=== PATIENT | male | born 1995 | race Caucasian/White ===

== ENCOUNTER 2020-03-24 17:38 | Emergency (ER) | payer BC ==
--- NOTE | 2020-03-24 17:46 | EDM.PDOC ---
ED HPI GENERAL MEDICAL PROBLEM - General Chief Complaint: General Stated Complaint: TOOTH ACHE Time Seen by Provider: 03/24/20 17:43 Source of Information: Reports: Patient History Limitations: Reports: No Limitations - History of Present Illness INITIAL COMMENTS - FREE TEXT/NARRATIVE: HISTORY AND PHYSICAL: History of present illness: Patient is a 25-year-old male who presents to the emergency room with complaints of left lower dental pain. He was seen 3 days ago at the dentist for a dental abscess and states he could only get in for a brief appointment. At that time he was placed on penicillin and a follow-up appointment was made for him for 04/03/2020. He is concerned that the penicillin is not working as he has increased pain and soft tissue swelling, positive history for MRSA. He has been using Tylenol and Advil without much relief of his discomfort. Patient denies any fever, chills, headache, change in vision, syncope or near syncope. Denies any chest pain, back pain, shortness of breath or cough. Denies any GI or symptoms. Patient has been eating and drinking appropriately. Review of systems: As per history of present illness and below otherwise all systems reviewed and negative. Past medical history: As per history of present illness and as reviewed below otherwise noncontributory. Surgical history: As per history of present illness and as reviewed below otherwise noncontributory. Social history: See social history for further information Family history: As per history of present illness and as reviewed below otherwise noncontributory. Physical exam: General: Well-developed and well-nourished 25-year-old male. Alert and oriented. Nontoxic-appearing and in no acute distress. HEENT: Atraumatic, normocephalic, pupils equal and reactive bilaterally, negative for conjunctival pallor or scleral icterus, mucous membranes moist, redness and mild gumline swelling along the tooth #22. TMs normal bilaterally, throat clear, neck supple, nontender, trachea midline. No drooling or trismus noted. No meningeal signs. No hot potato voice noted. Lungs: Clear to auscultation, breath sounds equal bilaterally. Heart: S1S2, regular rate and rhythm without overt murmur Abdomen: Soft, nondistended, nontender. Skin: Intact, warm, dry. No lesions or rashes noted. Extremities: Atraumatic, moves all extremities per self without difficulty or deficits, negative for cords or calf pain. Neurovascular unremarkable. Neuro: Awake, alert, oriented. Cranial nerves II through XII unremarkable. Cerebellum unremarkable. Motor and sensory unremarkable throughout. Exam nonfocal. Notes: Patient does have a follow-up appointment with the dentist for reevaluation. Signs and symptoms that would prompt him to return to the emergency room were reviewed and discussed. Medication and supportive care measures were reviewed and discussed. Voices understanding and is agreeable to plan of care. Denies any further questions or concerns at this time. Diagnostics: None Therapeutics: Dental balls Prescription: Clindamycin, [place] (#20) Impression: Dental abscess Plan: 1. Stop the Pen VK. Please take the Clindamycin as prescribed. 2. Tylenol and/or ibuprofen as needed for pain management. [place] 1-2 tabs every 4 hours as needed for moderate to severe pain. Do not take this medication with alcohol or drugs. 3. Follow-up with a dentist for definitive care. Return to the ED as needed and as discussed. Definitive disposition and diagnosis as appropriate pending reevaluation and review of above. lower dental Pain Score (Numeric/FACES): 10 - Related Data Allergies Allergy/AdvReac Type Severity Reaction Status Date / Time No Known Allergies Allergy Verified 03/24/20 17:44 Home Meds: Home Meds Acetaminophen/HYDROcodone [[place] 325-5 MG] 1 tab PO Q4H PRN #20 tablet 03/24/20 [Rx] Penicillin V Potassium 500 mg PO ASDIRECTED 03/24/20 [History] clindamycin HCL [Cleocin HCl] 300 mg PO TID 10 Days #30 capsule 03/24/20 [Rx] ED ROS GENERAL - Review of Systems Review Of Systems: Comprehensive ROS is negative, except as noted in HPI. ED EXAM, GENERAL - Physical Exam Exam: See Below (See dictation) Course - Vital Signs Last Recorded V/S: Last Vital Signs Temp 97.4 F 03/24/20 17:41 Pulse 54 L 03/24/20 17:41 Resp 18 03/24/20 17:41 BP 137/79 03/24/20 17:41 Pulse Ox 96 03/24/20 17:41 Departure - Departure Time of Disposition: 17:58 Disposition: Home, Self-Care 01 Clinical Impression: Dental abscess - Discharge Information Prescriptions: Acetaminophen/HYDROcodone [[place] 325-5 MG] 1 tab PO Q4H PRN #20 tablet PRN Reason: Pain clindamycin HCL [Cleocin HCl] 300 mg PO TID 10 Days #30 capsule Instructions: Dental Abscess, [id number] Referrals: PCP,None [Primary Care Provider] - Forms: ED Department Discharge Additional Instructions: The following information is given to patients seen in the emergency department who are being discharged to home. This information is to outline your options for follow-up care. We provide all patients seen in our emergency department with a follow-up referral. The need for follow-up, as well as the timing and circumstances, are variable depending upon the specifics of your emergency department visit. If you don't have a primary care physician on staff, we will provide you with a referral. We always advise you to contact your personal physician following an emergency department visit to inform them of the circumstance of the visit and for follow-up with them and/or the need for any referrals to a consulting specialist. The emergency department will also refer you to a specialist when appropriate. This referral assures that you have the opportunity for follow-up care with a specialist. All of these measure are taken in an effort to provide you with optimal care, which includes your follow-up. Under all circumstances we always encourage you to contact your private physician who remains a resource for coordinating your care. When calling for follow-up care, please make the office aware that this follow-up is from your recent emergency room visit. If for any reason you are refused follow-up, please contact the [facility] Emergency Department at and asked to speak to the emergency department charge nurse. [facility] [address] [place] [id number] [address] [address] 1. Stop the Pen VK. Please take the Clindamycin as prescribed. 2. Tylenol and/or ibuprofen as needed for pain management. [place] 1-2 tabs every 4 hours as needed for moderate to severe pain. Do not take this medication with alcohol or drugs. 3. Follow-up with a dentist for definitive care. Return to the ED as needed and as discussed. Sepsis Event Note - Focused Exam Vital Signs: Vital Signs Temp Pulse Resp BP Pulse Ox 03/24/20 17:41 97.4 F 54 L 18 137/79 96 Date Exam was Performed: 03/24/20 Time Exam was Performed: 17:54
[2020-03-24] MEDS ORDERED: Benzocaine 20% Topical Spray UD MUCMEM ONE (17:55)
[2020-03-24] MEDS ORDERED: Lidocaine 2% Viscous Solution 15 ML Cup PO ONE (17:55)
== END 2020-03-24 18:11 | disposition home or self-care (01) ==
LOC: MW.ED 17:38
DX: K04.7 Periapical abscess without sinus (principal)
CPT/HCPCS: 99282; A9270